=== PATIENT | female | born 1960 | race Caucasian/White ===

== ENCOUNTER 2024-08-18 20:38 | Emergency (ER) | payer MEDICARE, SELFPAY ==
[2024-08-18] VITALS (11 sets, daily range): BP systolic 146–177; BP diastolic 93–110; PULSE 63–78; RESP 17–19; TEMP 36.9; O2SAT 95–98; BMI 25.2
--- NOTE | 2024-08-18 21:12 | DI.RAD.S_ITS ---
PROCEDURE: XR CHEST 1V INDICATIONS: chest pain TECHNIQUE: One view of the chest was acquired. COMPARISON: None. FINDINGS: Surgical changes and devices: Partially visualized right shoulder arthroplasty. Lungs and pleura: Lung volumes are slightly low, but otherwise are clear. No pleural effusions or pneumothorax. Mediastinum: Mediastinal contours appear normal. Heart size is normal. Bones and chest wall: No suspicious bony lesions. Overlying soft tissues appear unremarkable. IMPRESSION: Slightly low lung volumes, but otherwise lungs are clear Approved by: Kajal Elias M.D.,Ph.D. on 08/18/2024 at 21:54
--- NOTE | 2024-08-18 21:19 | EKG_ITS ---
[address] [address] Test Date: 2024-08-18 Pat Name: Pattie Doan Department: [facility] Room: Gender: Female Press Hand: MENDY : 1960 Requested By: Order Number: [id number] Reading MD: Abdulaziz Avila Measurements Intervals [place] Rate: 73 P: 41 MN: 168 QRS: 19 QRSD: 72 T: 46 QT: 388 QTc: 427 Interpretive Statements Normal sinus rhythm Cannot rule out Anterior infarct , age undetermined Electronically Signed On 08-21-2024 9:44:22 PST by Abdulaziz Avila
[2024-08-18 21:32] LABS: Add Manual Diff / Slide Review NO; Basophils Absolute Auto 0 /uL (0-100); Basophils Percent Auto 0.7 % (0-2); Eosinophils Absolute Auto 200 /uL (0-450); Eosinophils Percent Auto 3.8 % (2-4); Hematocrit 42.2 % (36-46); Hemoglobin 14.3 g/dL (12.0-16.0); Lymphocytes Absolute Auto 1600 /uL (1100-4500); Mean Corpuscular HGB Conc 33.8 % (30-36); Mean Corpuscular Hemoglobin 28.4 PG (26-34); Mean Corpuscular Volume 83.9 fL (80-100); Monocytes Absolute Auto 500 /uL (0-900); Monocytes Percent Auto 9.1 % (3-14); Neutrophils Absolute Auto 2800 /uL (1500-7000); Neutrophils Percent Auto 54.4 % (50-75); Platelet Count 261 X10^3/uL (150-400); Red Blood Cell Count 5.03 X10^6/uL (4.0-5.2); Red Cell Distribution Width 13.1 % (11.6-14.8); White Blood Cell Count 5.1 X10^3/uL (4.5-11.0)
[2024-08-18 21:47] LABS: Alanine Aminotransferase 31 IU/L (<35); Albumin 4.5 g/dL (3.5-5.0); Alkaline Phosphatase 68 U/L (38-126); Aspartate Aminotransferase 32 IU/L (14-36); BUN Creatinine Ratio 18.8 (6-22); Bilirubin Total 0.4 mg/dL (0.2-1.3); Blood Urea Nitrogen 12 mg/dL (7-17); Calcium 9.8 mg/dL (8.4-10.2); Carbon Dioxide 28 mmol/L (22-32); Chloride 107 mmol/L (98-107); Creatine Kinase 74 U/L (30-135); Estimated Glomerular Filt Rate > 60 mL/min (>60); Globulin 2.3 g/dL (1.7-4.1); Glucose 101 mg/dL (80-110); HEMOLYSIS < 15 (0-50); Lipase 156 U/L (23-300); Potassium 4.1 mmol/L (3.4-5.1); Sodium 141 mmol/L (137-145); Total Protein 6.8 g/dL (6.3-8.2)
[2024-08-18 21:57] LABS: NT-proBNP (BNP-Adult 18+) 58 pg/mL (<125)
[2024-08-18 22:00] LABS: Troponin I < 0.012 ng/mL (0.01-0.034)
--- NOTE | 2024-08-18 22:58 | PC.NURSE ---
Patient stepped out of the room and asked if a doctor can come see her as she is having trouble swallowing. Patient able to speak in full sentences without difficulty, spo2 at 985 at RA. RR 18. patient's throat looked at by this nurse, tonsils not visualized, back of the throat pink. Dr. Montoya notified immediately that pt reports trouble swallowing. No new orders.
--- NOTE | 2024-08-18 23:13 | ED.SOB ---
HPI - SOB/Dyspnea General Chief Complaint: Shortness of Breath/Dyspnea Stated Complaint: SOB, 'throat closing' Time Seen by Provider: 08/18/24 21:11 Source: patient Mode of arrival: Family Vehicle Limitations: no limitations History of Present Illness HPI Narrative: 64-year-old female history of hypothyroidism dyslipidemia proximal atrial fibrillation on Toprol-XL patient does not take any anticoagulants. Patient states for the past 2-3 weeks she has had sensation of a ball in her throat sort of mid throat. She states it feels internal. She states it has been slowly worsening and progressive she knows particularly over [place] it felt like it is hard to swallow. Sat little bit of difficulty with food she has not had any trouble with liquids. She was noted some mild hoarseness. No stridor. No difficulty with secretions. She does feel little bit difficult to lay all the way flat for prolonged periods of time. She was hiking today when she felt like it was quite a bit worse. She denies fevers or chills no cold cough or congestion symptoms. No external swelling or changes that she was noticed. No difficulty with movement. She denies chest pain no shortness of breath no nausea or vomiting no issues with bowel movements or urination. She has had sensation of having food get stuck in the past but lower in her chest never up high. She did have a dental appointment early July was found to have an infection and a molar was treated with amoxicillin which she is still taking. She does have an appointment with ENT in [place] on September 03. Patient states home medications include Synthroid, pravastatin, Toprol-XL. She has had prior shoulder surgery in 2020 and a complete hysterectomy in 1997. No known drug allergies no tobacco, glass of alcohol 3-4 times weekly, no recreational drugs. Does not have a family history of thyroid cancer with several family members on the maternal side. Primary care is Dr. Boateng in [facility]. Related Data Previous Rx's Medication Instructions Recorded prednisone 10 mg tablets in a dose See Rx Instructions PO .COMPLEX 08/19/24 pack #21 ea Review of Systems Review of Systems ROS Unobtainable: All systems reviewed & are unremarkable except as noted in HPI and below Exam Narrative Exam Narrative: GEN: well nourished, well appearing female, alert and oriented x 3, patient appears to be in mild distress. HEENT: Atraumatic, pupils are equal round reactive to light, extraocular movements are intact, nares are clear, TMs are clear with no fluid, there is no conjunctival pallor. Throat is clear without any exudates, erythema, tonsillar enlargement or uvular deviation, no thyromegaly. Full range of motion. Patient is slightly hoarse, no stridor. No difficulty with secretions. Patient is seated in a chair in the room. No palpable cervical lymphadenopathy. HEART: Regular rate and rhythm without murmur, clicks, rubs. No carotid bruits, pulses are equal in upper and lower extremities LUNGS:Lungs clear to auscultation, no wheezes, rales, crackles, chest moves symmetrically ABD:bowel sounds normal, soft, non-tender, no guarding, rebound, rigidity, no masses noted, no hepatosplenomegaly MSCL: Non-tender, no muscle atrophy, muscles strength 5/5 upper and lower extremities, full range of motion, normal gait NEURO:CN 2-12 intact, sensation normal. SKIN: No rash, erythema or other skin changes Initial Vital Signs Initial Vital Signs: Vital Signs Temperature 98.5 F 08/18/24 20:42 Pulse Rate 76 08/18/24 20:42 Respiratory Rate 18 08/18/24 20:42 Blood Pressure 177/103 H 08/18/24 20:42 Pulse Oximetry 97 08/18/24 20:42 Oxygen Delivery Method Room Air 08/18/24 20:42 Course Orders Ordered: ED Orders 08/18/24 21:12 XR chest 1V Stat EKG-12 Lead Stat 08/18/24 21:24 BNP [NT-proBNP (BNP-Adult 18+)] Stat Complete Blood Count AUTO DIFF Stat Comprehensive Metabolic Panel Stat Lipase Stat Troponin & CK Cardiac Panel Stat 08/18/24 23:50 CT soft tissue neck w con Stat Discontinued Medications Sodium Chloride (Normal Saline 0.9%) 1,000 mls @ 1,000 mls/hr IV BOLUS ONE Stop: 08/19/24 00:49 Last Infusion: 08/19/24 01:07 Dose: Infused Documented By: Admin: 08/18/24 23:59 Dose: 1,000 mls/hr Documented By: JIGNESH Methylprednisolone (Methylprednisolone 125 Mg/2 Ml Vial) 125 mg IV NOW ONE Stop: 08/18/24 23:51 Last Admin: 08/18/24 23:59 Dose: 125 mg Documented By: JIGNESH Vital Signs Vital signs: Vital Signs - 8 hr 08/18/24 20:42 08/18/24 20:57 08/18/24 20:57 Temperature 98.5 F Pulse Rate 76 76 Respiratory Rate 18 18 Blood Pressure 177/103 H 168/93 H Pulse Oximetry 97 98 Oxygen Delivery Method Room Air 08/18/24 21:00 08/18/24 21:26 08/18/24 21:26 Temperature Pulse Rate 78 76 Respiratory Rate 19 Blood Pressure 176/110 H Pulse Oximetry 97 98 Oxygen Delivery Method Room Air 08/18/24 21:30 08/18/24 22:00 08/18/24 22:00 Temperature Pulse Rate 77 71 Respiratory Rate Blood Pressure 146/94 H Pulse Oximetry 96 95 Oxygen Delivery Method 08/18/24 22:30 08/18/24 22:55 08/18/24 22:55 Temperature Pulse Rate 72 65 Respiratory Rate 17 Blood Pressure 163/96 H Pulse Oximetry 95 97 Oxygen Delivery Method Room Air 08/18/24 23:00 08/18/24 23:01 08/18/24 23:01 Temperature Pulse Rate 67 63 Respiratory Rate 17 Blood Pressure 148/95 H Pulse Oximetry 97 97 Oxygen Delivery Method Room Air Room Air 08/18/24 23:30 08/19/24 00:00 08/19/24 00:00 Temperature Pulse Rate 75 66 Respiratory Rate Blood Pressure 150/89 H Pulse Oximetry 96 97 Oxygen Delivery Method Room Air 08/19/24 00:25 08/19/24 00:25 08/19/24 00:30 Temperature Pulse Rate 66 66 Respiratory Rate 17 Blood Pressure 144/109 H Pulse Oximetry 100 99 Oxygen Delivery Method Room Air 08/19/24 01:00 08/19/24 02:15 08/19/24 02:15 Temperature Pulse Rate 68 63 Respiratory Rate 18 Blood Pressure 170/88 H Pulse Oximetry 99 97 Oxygen Delivery Method Room Air Room Air MDM - SOB/Dyspnea Lab Data 08/18/24 21:24 08/18/24 21:24 Labs: Lab Results 08/18/24 Range/Units 21:24 WBC 5.1 (4.5-11.0) X10^3/uL RBC 5.03 (4.0-5.2) X10^6/uL Hgb 14.3 (12.0-16.0) g/dL Hct 42.2 (36-46) % MCV 83.9 (80-100) fL MCH 28.4 (26-34) PG MCHC 33.8 (30-36) % RDW 13.1 (11.6-14.8) % Plt Count 261 (150-400) X10^3/uL Neut % (Auto) 54.4 (50-75) % Lymph % (Auto) 32.0 (25-40) % [place] % (Auto) 9.1 (3-14) % Eos % (Auto) 3.8 (2-4) % Baso % (Auto) 0.7 (0-2) % Neut # (Auto) 2800 (2129-5923) /uL Lymph # (Auto) 1600 (3006-2552) /uL [place] # (Auto) 500 (0-900) /uL Eos # (Auto) 200 (0-450) /uL Baso # (Auto) 0 (0-100) /uL Sodium 141 (137-145) mmol/L Potassium 4.1 (3.4-5.1) mmol/L Chloride 107 (98-107) mmol/L Carbon Dioxide 28 (22-32) mmol/L BUN 12 (7-17) mg/dL Creatinine 0.64 (0.52-1.04) mg/dL Estimated GFR > 60 (>60) mL/min BUN/Creatinine Ratio 18.8 (6-22) Glucose 101 (80-110) mg/dL Calcium 9.8 (8.4-10.2) mg/dL Total Bilirubin 0.4 (0.2-1.3) mg/dL AST 32 (14-36) IU/L ALT 31 (<35) IU/L Alkaline Phosphatase 68 (38-126) U/L Total Creatine Kinase 74 (30-135) U/L Troponin I < 0.012 (0.01-0.034) ng/mL NT-Pro-B Natriuret Pep 58 (<125) pg/mL Total Protein 6.8 (6.3-8.2) g/dL Albumin 4.5 (3.5-5.0) g/dL Globulin 2.3 (1.7-4.1) g/dL Albumin/Globulin Ratio 2.0 (1.0-2.8) Lipase 156 (23-300) U/L Imaging Data Chest x-ray: Radiologist's Impression: [place] [address] XRay Report Signed Patient: Pattie Doan MR#: [id number] : 1960 Acct:[id number] Age/Sex: 64 / F Date of Service: 08/18/24 Loc: ED Accession Number: [id number] Procedure: XR chest 1V Ordering Provider: Nellie Montoya D.O. PROCEDURE: XR CHEST 1V INDICATIONS: chest pain TECHNIQUE: One view of the chest was acquired. COMPARISON: None. FINDINGS: Surgical changes and devices: Partially visualized right shoulder arthroplasty. Lungs and pleura: Lung volumes are slightly low, but otherwise are clear. No pleural effusions or pneumothorax. Mediastinum: Mediastinal contours appear normal. Heart size is normal. Bones and chest wall: No suspicious bony lesions. Overlying soft tissues appear unremarkable. IMPRESSION: Slightly low lung volumes, but otherwise lungs are clear Approved by: Kajal Elias M.D.,Ph.D. on 08/18/2024 at 21:54 CT soft tissue neck: Radiologist's Impression: Close Soft Tissue Neck CT (Signed) Kajal Elias - 08/18/24 Chest X-Ray (Signed) Kajal Elias - 08/18/24 Launch?[place] [address] CT Scan Report Signed Patient: Pattie Doan MR#: [id number] : 1960 Acct:[id number] Age/Sex: 64 / F Date of Service: 08/18/24 Loc: ED Accession Number: [id number] Procedure: CT soft tissue neck w con Ordering Provider: Nellie Montoya D.O. PROCEDURE: CT SOFT TISSUE NECK W CON INDICATIONS: feels like ball stuck in throat progressive, mildly hoarse TECHNIQUE: After the administration of intravenous contrast, 3.0 mm axial sections acquired from the sella to the aortic arch. Additional oblique axial 3.0 mm sections acquired through the pharynx. 3 mm thick coronal and sagittal reformats were generated. For radiation dose reduction, the following was used: automated exposure control. COMPARISON: None. FINDINGS: Image quality: Streak metal artifact from dental amalgam Lymph nodes: No enlarged lymph nodes seen throughout the neck. Vessels: Visualized vasculature appears patent. Neck spaces: The oropharynx, nasopharynx, and pharynx demonstrate no mucosal lesions. The vocal cords, false vocal cords, pyriform sinuses, epiglottis, vallecula, and tongue base all appear normal. Extramucosal spaces appear unremarkable. Glands: The parotid and submandibular glands appear normal. Thyroid gland is unremarkable. Miscellaneous: Visualized brain and orbits appear normal. Lung apices appear clear. Superficial soft tissues appear normal. Bones: No suspicious bony lesions. Visualized sinuses and mastoids appear unremarkable. IMPRESSION: No acute infectious or inflammatory process. Approved by: Kajal Elias M.D.,Ph.D. on 08/19/2024 at 1:53 ECG Data Attestation: I personally reviewed and interpreted this ECG as follows: Interpretation: Sinus rhythm rate of 73 MI 168 QRS is 2 QTC of 470 2. Patient has prior from 07/25/2022 with no acute changes. [facility] Narrative Medical decision making narrative: Labs show white count of 5.1 hemoglobin of 14 platelets of 261.? Chemistries are normal BUN 12 creatinine 0.64 glucose is 101 calcium is 9.8 LFTs are negative troponins less than 0.012 with a BNP of 58. EKG sinus rhythm Chest x-ray shows low lung volumes but otherwise normal.?? Soft tissue neck shows no acute change. Discussed with the patient she has been having some progressive changes we will obtain soft tissue neck with contrast.? Patient was also given fluids and steroids.??Patient has follow up with ENT on the 03 of September encouraged to keep this appointment but we will give alternatives for local. We will give a short course of steroids discussed multiple potential sources of her symptoms recommended 1st with ENT she has had a little bit of hoarseness but possibility for EGD scope would the next step versus swallow eval. Discharge Plan Departure Patient Disposition: Home Clinical Impression: Hoarseness Activity Restrictions/Additional Instructions: I do recommend you follow up with ENT to evaluate your airway, alternatives his some of your symptoms could be coming from the esophagus EGD or swallow evaluation would be alternative follow up choices. Because of your hoarseness I think ENT is the most appropriate next step. Your imaging today does not show any major changes to the structure of the airway, esophagus or neck. You can take steroids daily until gone to see if this improves your symptoms. Prescription sent to [facility] in [place]. Please return if you are happy and rapidly worsening symptoms, inability to swallow saliva or secretions, stridor, high-pitched wheezing, increasing difficulty with breathing, inability to lay flat or other new or concerning changes. Prescriptions: New prednisone 10 mg tablets,dose pack See Rx Instructions .ROUTE .COMPLEX Qty: 21 0RF Rx Instructions: 6 tabs p.o. x1 day, then 5 tabs p.o. x1 day, then 4 tablets p.o. x1 day, then 3 tabs p.o. x1 day, then 2 tabs p.o. x1 day, then 1 tab p.o. x1 day Referrals: Héctor Urrutia MD [Physician] - Stand Alone Forms: Patient Portal/API/Survey
--- NOTE | 2024-08-18 23:50 | DI.CT.S_ITS ---
PROCEDURE: CT SOFT TISSUE NECK W CON INDICATIONS: feels like ball stuck in throat progressive, mildly hoarse TECHNIQUE: After the administration of intravenous contrast, 3.0 mm axial sections acquired from the sella to the aortic arch. Additional oblique axial 3.0 mm sections acquired through the pharynx. 3 mm thick coronal and sagittal reformats were generated. For radiation dose reduction, the following was used: automated exposure control. COMPARISON: None. FINDINGS: Image quality: Streak metal artifact from dental amalgam Lymph nodes: No enlarged lymph nodes seen throughout the neck. Vessels: Visualized vasculature appears patent. Neck spaces: The oropharynx, nasopharynx, and pharynx demonstrate no mucosal lesions. The vocal cords, false vocal cords, pyriform sinuses, epiglottis, vallecula, and tongue base all appear normal. Extramucosal spaces appear unremarkable. Glands: The parotid and submandibular glands appear normal. Thyroid gland is unremarkable. Miscellaneous: Visualized brain and orbits appear normal. Lung apices appear clear. Superficial soft tissues appear normal. Bones: No suspicious bony lesions. Visualized sinuses and mastoids appear unremarkable. IMPRESSION: No acute infectious or inflammatory process. Approved by: Kajal Elias M.D.,Ph.D. on 08/19/2024 at 1:53
[2024-08-18] MEDS: methylPREDNISolone 125 MG/2 ML VIAL IV (23:59)
[2024-08-18] MEDS: SODIUM CHLORIDE 0.9% 1,000 ML 1000 ML IV (23:59)
[2024-08-19] VITALS: BP 150/89; PULSE 66; O2SAT 97
[2024-08-19 00:25] VITALS: BP 144/109; PULSE 66; RESP 17; O2SAT 100
[2024-08-19 00:30] VITALS: PULSE 66; O2SAT 99
[2024-08-19 01:00] VITALS: PULSE 68; O2SAT 99
[2024-08-19 02:15] VITALS: BP 170/88; PULSE 63; RESP 18; O2SAT 97
== END 2024-08-19 02:25 | disposition home or self-care (01) ==
PROVIDERS: Emergency Provider Emergency Medicine
DX: R49.0 Dysphonia (principal); R13.10 Dysphagia, unspecified; R09.A2 Foreign body sensation, throat
CPT/HCPCS: 36415; 70491; 71045; 80053; 82550; 83690; 83880; 84484; 85025; 93005; 96361; 96374; 99284; J2919; Q9967

== ENCOUNTER → 2024-09-16 12:17 | Outpatient (CLI) | payer MEDICARE, SELFPAY ==
--- NOTE | 2024-09-16 12:19 | DI.MRI.S_ITS ---
PROCEDURE: MR SHOULDER LT WO CON INDICATIONS: PAIN L SHOULDER / RULE OUT RTC TEAR TECHNIQUE: Noncontrast oblique coronal T2 fast spin echo with fat saturation, oblique sagittal T1 spin echo and T2 fast spin echo with fat saturation, axial T1 spin echo and T2 fast spin echo with fat saturation through the shoulder. COMPARISON: [facility] [place], [place], XR SHOULDER 2+ VIEWS LEFT, 09/09/2024, 10:56. FINDINGS: Image quality: Excellent. Rotator cuff: Low to moderate grade articular surface partial-thickness tear involving anterior fibers of distal supraspinatus at its insertion on the humeral head is seen extending to musculotendinous junction. Low-grade articular surface partial-thickness tear involving distal infraspinatus at its insertion on the humeral head. Distal subscapularis tendinosis is seen. No full-thickness rotator cuff tendon rupture. Sagittal images demonstrate mild supraspinatus muscle atrophy. Bones and bursae: No bone marrow contusions or fractures. Mild to moderate acromioclavicular joint osteoarthritic changes are seen with joint space narrowing, subchondral sclerosis and downward osteophyte formation depressing the musculotendinous junction of supraspinatus. Moderate glenohumeral joint osteoarthritic changes also seen. Type 1 acromion without an os acromiale. Small amount of joint fluid and subacromial subdeltoid bursal fluid is seen, no loose bodies. Capsule and soft tissues: Extensive signal abnormality and fraying throughout posterior glenoid labrum is seen suggestive of extensive posterior labral tear. The long head of the biceps tendon demonstrates normal location and morphology. The rotator interval appears normal, without fibrosis. The coracohumeral ligament is normal in thickness. IMPRESSION: 1. Low to moderate grade articular surface partial-thickness tear involving distal supraspinatus extending to musculotendinous junction. Low-grade articular surface partial-thickness tear involving distal infraspinatus. Distal subscapularis tendinosis. No full-thickness rotator cuff tendon rupture. Mild supraspinatus muscle atrophy. 2. Moderate acromioclavicular joint and glenohumeral joint osteoarthritis. Small to moderate amount of joint fluid and subacromial subdeltoid bursal fluid, no gross loose bodies. No acute fracture or dislocation. 3. Global signal abnormality throughout posterior labrum suggestive of extensive posterior glenoid labral tear. Dictated by: Donald Posada M.D. on 09/17/2024 at 12:37 Approved by: Donald Posada M.D. on 09/17/2024 at 12:57
== END ==
PROVIDERS: PCP Family Medicine; Referring Provider Orthopaedic Surgery; Visit Provider Orthopaedic Surgery
DX: M75.112 Incomplete rotator cuff tear or rupture of left shoulder, not specified as traumatic (principal); M19.012 Primary osteoarthritis, left shoulder; M25.512 Pain in left shoulder
CPT/HCPCS: 73221

== ENCOUNTER → 2024-09-18 15:13 | Outpatient (CLI) | payer MEDICARE, SELFPAY ==
--- NOTE | 2024-09-18 15:14 | DI.US.S_ITS ---
PROCEDURE: US THYROID INDICATIONS: thyroid dysfunction TECHNIQUE: Real-time scanning was performed of the thyroid gland, with image documentation. COMPARISON: None. FINDINGS: Thyroid: Right lobe measures 3.4 x 1.2 x 1.2 cm. Left lobe measures 3.7 x 1.3 x 1.2 cm. Isthmus is 0.3 cm thick. Echotexture is homogeneous. IMPRESSION: Normal ultrasound of the thyroid ACR TI-RADS definitions and recommendations: TI-RADS 1 (benign): 0 points. FNA not needed. TI-RADS 2 (not suspicious): 2 points. FNA not needed. TI-RADS 3: 3 points. * FNA if 2.5 cm or larger, follow up if 1.5 cm or larger (at 1, 3, and 5 years). TI-RADS 4: 4-6 points. * FNA if 1.5 cm or larger, follow up if 1 cm or larger (at 1, 2, 3, and 5 years). TI-RADS 5: 7 points or more. * FNA if 1 cm or larger, follow up if 0.5 cm or larger (every year for 5 years). 1. Dictated by: Alex Patel M.D. on 09/19/2024 at 17:52 Approved by: Alex Patel M.D. on 09/19/2024 at 17:52
== END ==
PROVIDERS: PCP Family Medicine; Referring Provider Student in an Organized Health Care Education/Training Program; Visit Provider Student in an Organized Health Care Education/Training Program
DX: R13.10 Dysphagia, unspecified (principal); E07.9 Disorder of thyroid, unspecified
CPT/HCPCS: 76536

== ENCOUNTER → 2025-01-14 10:13 | Outpatient (CLI) | payer MEDICARE, SELFPAY ==
--- NOTE | 2025-01-14 10:17 | DI.RAD.S_ITS ---
PROCEDURE: XR CALCANEOUS LT MIN 2V INDICATIONS: HEEL PAIN TECHNIQUE: Two views of the calcaneus were acquired. COMPARISON: None. FINDINGS: Bones: There are no osseous abnormalities Joints: The joint spaces are normal in width and alignment without arthritic change. Soft tissues: Moderate calcification of plantar Achilles tendon insertions appreciated. There is moderate plantar soft tissue swelling over the calcaneus Moderate plantar soft tissues over the calcaneus IMPRESSION: Moderate plantar soft tissues over the calcaneus compatible with edema or inflammation Dictated by: Messi Stuart M.D. on 01/15/2025 at 10:43 Approved by: Messi Stuart M.D. on 01/15/2025 at 10:44
== END ==
PROVIDERS: PCP Family Medicine; Referring Provider Family Medicine; Visit Provider Family Medicine
DX: M79.89 Other specified soft tissue disorders (principal); M79.672 Pain in left foot
CPT/HCPCS: 73650